=== PATIENT | male | born 1995 | race American Indian/Alaskan Native ===

== ENCOUNTER 2019-02-04 18:27 | Emergency (ER) | payer OTHER ==
[2019-02-04 19:35] VITALS: BP 143/86
--- NOTE | 2019-02-04 19:36 | Event Note ---
ED Screening Note Date of service: 02/04/19 Time: 19:31 ED Screening Note: This is a 23 y.o. M. that presents to the ER with psychosis since today. PMH of ADHD Parents state he reports seeing demons and hearing voices that tell him to kill. Parents state he haven't slept or eaten in 3 days. Nonsmoker or drug use. This initial assessment/diagnostic orders/clinical plan/treatment(s) is/are subject to change based on patients health status, clinical progression and re- assessment by fellow clinical providers in the ED. Further treatment and workup at subsequent clinical providers discretion. Patient/guardian urged not to elope from the ED as their condition may be serious if not clinically assessed and managed. Initial orders include: Labs
[2019-02-04] MEDS ORDERED: ZIPRASIDONE MESYLATE 20 MG VIAL IM ONE (20:23)
[2019-02-04] MEDS ORDERED: LORazepam 2 MG/ML VIAL IM ONE (20:23)
[2019-02-04 20:41] LABS: BUN/Creatinine Ratio 10; Blood Urea Nitrogen 11 mg/dL (9-20); Hemolysis Index 28
[2019-02-04 20:58] LABS: Bilirubin,Urine NEG (Negative); Blood,Urine NEG (Negative); Color,Urine Yellow (Yellow); Mucus,Urine 1+ /HPF; Protein,Urine <15 mg/dL mg/dL (Negative); Sperm,Urine 1+ /HPF (NP); Urobilinogen,Urine < 2.0 mg/dL (<2.0)
[2019-02-04 21:06] LABS: Benzodiazepines Screen,Urine PRESUMPTIVE NEGATIVE; Cannabinoid Screen,Urine PRESUMPTIVE NEGATIVE; Cocaine Screen,Urine PRESUMPTIVE NEGATIVE; Methadone Screen,Urine PRESUMPTIVE NEGATIVE; Opiate Screen,Urine PRESUMPTIVE NEGATIVE
[2019-02-04 21:21] LABS: Amphetamine Screen,Urine PRESUMPTIVE POSITIVE
[2019-02-04 21:41] LABS: Eosinophils % (Auto) 0.5 % (0.0-4.3); Hematocrit 42.9 % (35.5-45.6); Hemoglobin 15.2 gm/dl (11.8-15.2); Lymphocytes # (Auto) 1.2 K/mm3 (1.2-5.4); Lymphocytes % (Auto) 23.1 % (13.4-35.0); Mean Corpuscular HGB Conc 35 % (32-34); Mean Corpuscular Volume 89 fl (84-94); Monocytes # (Auto) 0.4 K/mm3 (0.0-0.8); Monocytes % (Auto) 7.8 % (0.0-7.3); Platelet Count 238 K/mm3 (140-440); Red Blood Count 4.82 M/mm3 (3.65-5.03); Red Cell Distribution Width 13.4 % (13.2-15.2)
--- NOTE | 2019-02-04 22:38 | Emergency Department Report ---
ED Psych HPI - General Chief Complaint: Psych Stated Complaint: PANIC ATTACK Time Seen by Provider: 02/04/19 19:31 Source: patient, family Mode of arrival: Ambulatory - History of Present Illness Initial Comments: 23-year-old male, history of ADHD currently taking Adderall, presents to ED with acute psychosis. Family reports patient has been exhibiting bizarre behavior over the last couple of days. Patient was missing most of the day today. Patient called his grandfather, asking who his father was. He was eventually dropped off by someone at his home. After arriving at home, mother states patient was saying that the devil was telling to kill her. Family reports calvin ent has not smoked in 3 days. Patient denies any SI, HI, or hallucinations when asked. Patient had to be escorted to the back, he was agitated at triage and a [facility] was called -: This afternoon Associated Psychiatric Symptoms: homicidal ideation, auditory hallucinations History of same: No Quality: constant Improves With: none Worsens With: none Associated Symptoms: denies other symptoms Treatments Prior to Arrival: none - Related Data Home Medications Medication Instructions Recorded Confirmed Last Taken No Known Home Medications [No 02/04/19 02/04/19 Unknown Reported Home Medications] Allergies Allergy/AdvReac Type Severity Reaction Status Date / Time No Known Allergies Allergy Verified 02/04/19 18:31 ED Review of Systems ROS: Stated complaint: PANIC ATTACK Other details as noted in HPI Comment: All other systems reviewed and negative Psychiatric: auditory hallucinations. denies: suicidal thoughts ED Past Medical Hx - Past Medical History Previous Medical History?: Yes Hx Asthma: Yes Additional medical history: ADHD - Surgical History Past Surgical History?: No - Social History Smoking Status: Never Smoker Substance Use Type: None - Medications Home Medications: Home Medications Medication Instructions Recorded Confirmed Last Taken Type No Known Home Medications [No 02/04/19 02/04/19 Unknown History Reported Home Medications] ED Physical Exam - General Limitations: No Limitations General appearance: alert - Head Head exam: Present: atraumatic, normocephalic - Eye Eye exam: Present: normal appearance, EOMI - ENT ENT exam: Present: mucous membranes moist - Neck Neck exam: Present: normal inspection - Respiratory Respiratory exam: Present: normal lung sounds bilaterally. Absent: respiratory distress - Cardiovascular Cardiovascular Exam: Present: regular rate, normal rhythm - GI/Abdominal GI/Abdominal exam: Present: soft. Absent: distended - Extremities Exam Extremities exam: Present: normal inspection - Neurological Exam Neurological exam: Present: alert, oriented X3, CN II-XII intact. Absent: motor sensory deficit - Psychiatric Psychiatric exam: Present: agitated - Skin Skin exam: Present: warm, dry, intact, normal color ED Course Vital Signs 02/04/19 19:32 Temperature 98.8 F Pulse Rate 97 H Respiratory 18 Rate Blood Pressure 143/86 O2 Sat by Pulse 99 Oximetry ED Medical Decision Making - Lab Data Result diagrams: 02/04/19 21:08 02/04/19 20:01 - Medical Decision Making 23 yo M with new onset psychosis. Per family, pt exhibiting bizarre behavior. Told his mother that the devil told him to kill himself. Family initially took pt to [facility] outpt office. They were instructed to bring pt to the ER for medical clearance so that he could be admitted at [facility]. Upon arrival, Evie Damon was called due to pt's agitation. Pt was medicated w/ geodon and ativan. Labs unremarkable. Drug screen positive for amphetamines, however, pt currently taking adderall. [facility] was called. I nformation sent and pt accepted by their psychiatrist, Dr Harley. [facility] is aware and has arranged for pt to be transported from our ED to [facility]. - Differential Diagnosis psychosis Critical Care Time: Yes Critical care time in (mins) excluding proc time.: 35 Critical care attestation.: If time is entered above; I have spent that time in minutes in the direct care of this critically ill patient, excluding procedure time. Critical Care Time: 35 min ED Disposition Clinical Impression: Acute psychosis Disposition: [id number]/[id number] PSY HOSP/PSY UNIT Is pt being admited?: No Condition: Stable Referrals: SRINI GUERRERO MD [Referring] - 3-5 Days Time of Disposition: 00:44
== END 2019-02-05 02:52 ==
LOC: ED 18:27
DX: F23 Brief psychotic disorder (principal); J45.909 Unspecified asthma, uncomplicated; F90.9 Attention-deficit hyperactivity disorder, unspecified type
CPT/HCPCS: 36415; 80048; 80307; 81001; 85025; 96372; 99285; J2060; J3486; 80320; G0480